=== PATIENT | female | born 1945 | race Caucasian/White ===

== ENCOUNTER 2022-10-25 16:03 | Inpatient (IN) | payer OTHER, MEDICAID ==
[~2022-10-25] VITALS: Ht 162.6 cm; Wt 83.0 kg
[2022-10-25 16:13] VITALS: BP_SYST 119
[2022-10-25 17:04] LABS: BASOPHILS # (AUTO) 0.1 K/uL (0.0-0.2); BASOPHILS % (AUTO) 0.6 % (0.0-2.0); EOSINOPHILS # (AUTO) 0.2 K/uL (0.0-0.4); EOSINOPHILS % (AUTO) 2.7 % (0.0-4.0); HEMATOCRIT 37.5 % (36-48); HEMOGLOBIN 12.3 g/dL (12.0-16.0); LYMPHOCYTES # (AUTO) 1.7 K/uL (1.0-5.5); LYMPHOCYTES % (AUTO) 20.3 % (20.5-51.5); MEAN CORPUSCULAR HEMOGLOBIN 30 pg (27-31); MEAN CORPUSCULAR HGB CONC 33 % (32-36); MEAN CORPUSCULAR VOLUME 91 fL (79.0-98.0); MONOCYTES # (AUTO) 0.7 K/uL (0.0-1.0); MONOCYTES % (AUTO) 8.7 % (1.7-9.3); NEUTROPHILS # (AUTO) 5.5 K/uL (1.8-7.7); NEUTROPHILS % (AUTO) 67.7 % (40.0-70.0); PLATELET COUNT (AUTO) 361 K/uL (130-430); RED BLOOD CELL COUNT(AUTO) 4.13 MIL/uL (4.2-6.2); RED CELL DISTRIBUTION WIDTH 13.5 % (9.0-15.0); WHITE BLOOD COUNT (AUTO) 8.1 K/uL (4.8-10.8)
[2022-10-25 17:14] LABS: ANION GAP 12 (5-15); CALCIUM 9.1 mg/dL (8.4-11.0); CHLORIDE 101 mmol/L (98-107); CREATININE 0.79 mg/dL (0.55-1.30); GLUCOSE 181 mg/dL (70-99); UREA NITROGEN, BLOOD 9 mg/dL (8-21)
[2022-10-25 17:21] LABS: ALANINE AMINOTRANSFERASE 33 U/L (12-78); ALBUMIN 2.9 g/dL (3.4-4.8); ASPARTATE AMINOTRANSFERASE 36 U/L (10-37); TOTAL BILIRUBIN 1.1 mg/dL (0.0-1.0)
[2022-10-25] MEDS ORDERED: ASPIRIN 81 MG TAB.CHEW PO ONE (18:30)
[2022-10-25] MEDS ORDERED: CIPR500T5 PO (18:51)
[2022-10-25] MEDS ORDERED: DAPA10TA PO (18:51)
[2022-10-25] MEDS ORDERED: CARV6.2554 PO (18:51)
[2022-10-25] MEDS ORDERED: LOSA25TA3 PO (18:51)
[2022-10-25] MEDS ORDERED: SPIR25TA6 PO (18:51)
[2022-10-25] MEDS ORDERED: TICA90TA PO (18:51)
[2022-10-25] MEDS ORDERED: LIP80 PO (18:51)
[2022-10-25 22:50] VITALS: BP_SYST 125
[2022-10-25 23:00] VITALS: BP_SYST 125
[2022-10-25 23:10] VITALS: BP_SYST 125
[2022-10-26] VITALS: BP_SYST 119
[2022-10-26 04:00] VITALS: BP_SYST 138
[2022-10-26 08:00] VITALS: BP_SYST 120
[2022-10-26] MEDS ORDERED: NON-FORMULARY MEDICATION (Dapagliflozin Propanediol (Farxiga) 10 MG) PO SCH (09:00)
[2022-10-26] MEDS: CARVEDILOL 6.25 MG TABLET (COREG) PO SCH ×2 (09:11→21:48)
[2022-10-26] MEDS: CIPROFLOXACIN HCL 500 MG TABLET PO SCH ×2 (09:11→21:48)
[2022-10-26] MEDS: SPIRONOLACTONE 25 MG TABLET (ALDACTONE) PO SCH (09:12)
[2022-10-26] MEDS: LOSARTAN POTASSIUM 25 MG TABLET PO SCH (09:12)
[2022-10-26] MEDS: TICAGRELOR 90 MG TABLET PO SCH ×2 (10:04→21:47)
[2022-10-26 11:27] VITALS: BP_SYST 130
[2022-10-26] MEDS ORDERED: D5W 1,000 ML IV PRN (15:00)
[2022-10-26] MEDS ORDERED: GLUCOSE (DEXTROSE) ORAL GEL -Adults PO PRN (15:00)
[2022-10-26] MEDS ORDERED: DEXTROSE 50% JECT 50 ML DISP.SYRIN IVP PRN (15:00)
[2022-10-26 15:21] VITALS: BP_SYST 126
[2022-10-26] MEDS ORDERED: PATIENT'S OWN TOPICAL TP PRN (17:00)
[2022-10-26 20:57] VITALS: BP_SYST 112
[2022-10-26] MEDS ORDERED: ATORVASTATIN 20 MG TABLET PO SCH (21:00)
[2022-10-26] MEDS: INSULIN REGULAR, HUMAN 100 UNITS/ML, 3 ML VIAL (humuLIN R) SUBCUT PRN (22:30)
[2022-10-27 00:22] VITALS: BP_SYST 98
[2022-10-27] MEDS: INSULIN REGULAR, HUMAN 100 UNITS/ML, 3 ML VIAL (humuLIN R) SUBCUT PRN ×2 (07:03→11:56)
[2022-10-27 08:32] VITALS: BP_SYST 117
[2022-10-27] MEDS ORDERED: ASPIRIN 81 MG TABLET(ECOTRIN) PO SCH (09:00)
[2022-10-27 09:19] LABS: ALANINE AMINOTRANSFERASE 30 U/L (12-78); ALBUMIN 2.9 g/dL (3.4-4.8); ANION GAP 9 (5-15); ASPARTATE AMINOTRANSFERASE 25 U/L (10-37); CHLORIDE 104 mmol/L (98-107); CREATININE 0.67 mg/dL (0.55-1.30); GLUCOSE 198 mg/dL (70-99); HDL CHOLESTEROL 36 mg/dL (>55); TOTAL BILIRUBIN 0.6 mg/dL (0.0-1.0); TRIGLYCERIDES 112 mg/dL (30-150); UREA NITROGEN, BLOOD 10 mg/dL (8-21)
[2022-10-27] MEDS: CARVEDILOL 6.25 MG TABLET (COREG) PO SCH (09:30)
[2022-10-27] MEDS: CIPROFLOXACIN HCL 500 MG TABLET PO SCH (09:31)
[2022-10-27] MEDS: SPIRONOLACTONE 25 MG TABLET (ALDACTONE) PO SCH (09:31)
[2022-10-27] MEDS: LOSARTAN POTASSIUM 25 MG TABLET PO SCH (09:31)
[2022-10-27] MEDS: TICAGRELOR 90 MG TABLET PO SCH (09:34)
[2022-10-27 11:29] VITALS: BP_SYST 135
[2022-10-27] MEDS ORDERED: Aspirin Ec PO (13:37)
[2022-10-27 14:38] VITALS: BP_SYST 135
[2022-10-27 14:59] LABS: CHOLESTEROL 85 mg/dL (<200)
[2022-10-27 15:22] VITALS: BP_SYST 130
== END 2022-10-27 15:00 | disposition home or self-care (01) | DRG 313 ==
LOC: SED 16:03 → STU 19:50
PROVIDERS: ADMIT Internal Medicine; ATTEND Internal Medicine
DX: R07.89 Other chest pain (principal); E44.0 Moderate protein-calorie malnutrition; Z20.822 Contact with and (suspected) exposure to COVID-19; E78.5 Hyperlipidemia, unspecified; E11.9 Type 2 diabetes mellitus without complications; I10 Essential (primary) hypertension; M19.90 Unspecified osteoarthritis, unspecified site; Z79.82 Long term (current) use of aspirin; Z79.899 Other long term (current) drug therapy; Z90.49 Acquired absence of other specified parts of digestive tract; Z90.710 Acquired absence of both cervix and uterus; Z95.5 Presence of coronary angioplasty implant and graft; Z91.041 Radiographic dye allergy status
CPT/HCPCS: 36415; 71045; 80053; 80061; 83880; 84484; 85025; 93005; 93306; 99285; G0378; J1815